=== PATIENT | male | born 1995 | race Caucasian/White ===

== ENCOUNTER 2020-02-25 11:25 | Emergency (ER) | payer BC, OTHER ==
[2020-02-25] MEDS ORDERED: Lidocaine 1% with EPINEPHrine 1:100,000 10 ML MDV INJECT ONE (11:31)
[2020-02-25] MEDS ORDERED: Diphtheria,Pertussis(Acell),Tetanus Vaccine 0.5 ML Syringe IM ONE (11:31)
[2020-02-25] MEDS ORDERED: Lidocaine 1% with EPINEPHrine 1:100,000 20 ML MDV ONE (11:46)
[2020-02-25] MEDS ORDERED: Lidocaine 1% with EPINEPHrine 1:100,000 20 ML MDV INJECT ONE (11:51)
--- NOTE | 2020-02-25 13:11 | EDM.PDOC ---
ED HPI GENERAL MEDICAL PROBLEM - General Chief Complaint: Laceration Stated Complaint: CUT ON LT ARM Time Seen by Provider: 02/25/20 11:31 - History of Present Illness INITIAL COMMENTS - FREE TEXT/NARRATIVE: Presents reporting laceration left wrist. Patient was handling a piece of equipment when a steel box slipped and struck him in the left over the carpal tunnel. No other injury. Unknown tetanus status. Otherwise healthy. Left Wrist Pain Score (Numeric/FACES): 6 - Related Data Allergies Allergy/AdvReac Type Severity Reaction Status Date / Time Penicillins Allergy Unknown unknown Verified 02/25/20 11:34 Home Meds: Home Meds Clindamycin HCl 1 cap PO TID #30 capsule 02/25/20 [Rx] Past Medical History - Infectious Disease History Infectious Disease History: Reports: Chicken Pox - Past Surgical History HEENT Surgical History: Reports: Tonsillectomy GI Surgical History: Reports: Cholecystectomy Social & Family History - Family History Family Medical History: Noncontributory - Tobacco Use Smoking Status *Q: Current Every Day Smoker Years of Tobacco use: 9 Packs/Tins Daily: 0.5 - Alcohol Use Days Per Week of Alcohol Use: 7 Number of Drinks Per Day: 2 Total Drinks Per Week: 14 - Recreational Drug Use Recreational Drug Use: No ED ROS GENERAL - Review of Systems Review Of Systems: Comprehensive ROS is negative, except as noted in HPI. ED EXAM, SKIN/RASH Exam: See Below General Appearance: Alert, No Apparent Distress Ears: Normal External Exam Nose: Normal Inspection Throat/Mouth: Normal Inspection Head: Atraumatic, Normocephalic Neck: Normal Inspection Respiratory/Chest: No Respiratory Distress Cardiovascular: Normal Peripheral Pulses, Regular Rate, Rhythm Back Exam: Normal Inspection Extremities: Normal Inspection Neurological: Alert, Oriented Psychiatric: Normal Affect, Normal Mood Skin: Warm, Dry, Normal Color, No Rash, Other (Left wrist over carpal tunnel 5 cm laceration. Full range of motion and strength to all digits including thumb without hesitation or limitation. Some limitation to flex extend and invert chanda of the wrist. Lacerated tendon noted within wound bed. Full sensation intact. No bleeding. ) ED SKIN PROCEDURES - Laceration/Wound Repair Left Wrist Appearance: Subcutaneous Distal NVT: Neuro & Vascular Intact, Other (lacerated tendon--flexor, not repaired) Anesthetic Type: Local Local Anesthesia - Lidocaine (Xylocaine): 1% with EPI Local Anesthetic Volume: Other (7cc) Skin Prep: Providone-Iodine (Betadine), Saline Exploration/Debridement/Repair: Wound Explored, In a Bloodless Field, Explored to Base Closed with: Sutures Lac/Wound length In cm: 5 Suture Size: 4-0 # of Sutures: 7 Suture Type: Nylon Suture Size: 4-0 Course - Vital Signs Last Recorded V/S: Last Vital Signs Temp 36.1 C 02/25/20 11:36 Pulse 46 L 02/25/20 11:36 Resp 18 02/25/20 11:36 BP 133/58 L 02/25/20 11:36 Pulse Ox 90 L 02/25/20 11:36 - Orders/Labs/Meds Orders: Active Orders 24 hr Category Date Time Status Vaccines to be Administered [RC] PER UNIT ROUTINE Care 02/25/20 11:33 Ordered Meds: Medications Discontinued Medications Generic Name Dose Route Start Last Admin Trade Name Freq PRN Reason Stop Dose Admin Diphtheria/Tetanus/Acell Pertussis 0.5 ml 02/25/20 11:31 02/25/20 12:27 Adacel IM 02/25/20 11:32 Not Given .ONCE ONE Lidocaine/Epinephrine 10 ml 02/25/20 11:31 02/25/20 11:51 Xylocaine 1% With Epinephrine 1:100,000 INJECT 02/25/20 11:32 Not Given ONETIME ONE Lidocaine/Epinephrine Confirm 02/25/20 11:46 02/25/20 12:26 Xylocaine 1% With Epinephrine 1:100,000 Administered 02/25/20 11:47 Not Given Dose 20 ml .ROUTE .STK-MED ONE Lidocaine/Epinephrine 20 ml 02/25/20 11:51 02/25/20 12:32 Xylocaine 1% With Epinephrine 1:100,000 INJECT 02/25/20 11:52 20 ml ONETIME ONE Administration - Re-Assessments/Exams Free Text/Narrative Re-Assessment/Exam: 02/25/20 13:14 Dr. Vasquez examined hand/wrist and laceration. Will close skin, splint and refer to ortho for tendon repair. Departure - Departure Time of Disposition: 13:34 Disposition: Home, Self-Care 01 Condition: Good Clinical Impression: Laceration Flexor tendon laceration of left wrist with open wound Qualifiers: Encounter type: initial encounter Qualified Code(s): S66.115F - Laceration of unspecified muscle, fascia and tendon at wrist and hand level, left hand, initial encounter; S61.927B - Unspecified open wound of left wrist, initial encounter - Discharge Information Referrals: PCP,None [Primary Care Provider] - Woodrow Engel MD [Physician] - Additional Instructions: 1. Take your antibiotics as directed. Start immediately 2. Wear your splint at all times 3. Follow up with Dr. Gayatri Engel direction for tendon repair. You must be seen at 11am in [facility] tomorrow 02/26/2020. 4. Keep clean and dry. Sepsis Event Note (ED) - Evaluation Sepsis Screening Result: No Definite Risk - Focused Exam Vital Signs: Vital Signs Temp Pulse Resp BP Pulse Ox 02/25/20 11:36 36.1 C 46 L 18 133/58 L 90 L - My Orders Last 24 Hours: My Active Orders 02/25/20 11:33 Vaccines to be Administered [RC] PER UNIT ROUTINE - Assessment/Plan Last 24 Hours: My Active Orders 02/25/20 11:33 Vaccines to be Administered [RC] PER UNIT ROUTINE
== END 2020-02-25 14:02 | disposition home or self-care (01) ==
LOC: MW.ED 11:25
DX: S66.822A Laceration of other specified muscles, fascia and tendons at wrist and hand level, left hand, initial encounter (principal); F17.210 Nicotine dependence, cigarettes, uncomplicated; W22.8XXA Striking against or struck by other objects, initial encounter
CPT/HCPCS: 12002; 99283

== ENCOUNTER 2020-02-29 21:26 | Emergency (ER) | payer OTHER ==
--- NOTE | 2020-02-29 21:56 | EDM.PDOC ---
ED HPI GENERAL MEDICAL PROBLEM - General Chief Complaint: Skin Complaint Stated Complaint: STITCHES COMPLAINT Time Seen by Provider: 02/29/20 21:27 - History of Present Illness INITIAL COMMENTS - FREE TEXT/NARRATIVE: History of present illness: [] The patient cut his wrist on the of this month and cut a tendon on the volar surface of his wrist. He saw the hand doctor on the and Dr. Broussardi him that it would heal without any further care. Today he was demonstrating his range of motion to his friends and his stitches but popped open. The patient does not have any change in the motion and strength are feeling in his fingers. Review of systems: As per history of present illness and below otherwise all systems reviewed and negative. Past medical history: As per history of present illness and as reviewed below otherwise noncontributory. Surgical history: As per history of present illness and as reviewed below otherwise noncontributory. Social history: No reported history of drug or alcohol abuse. Family history: As per history of present illness and as reviewed below otherwise noncontributory. Physical exam: Constitutional - well developed, well-nourished and in no acute distress HEENT - normocephalic, no evidence of trauma - external nose and mouth normal - no mass in neck and no JVD - mucosae moist EYES - full EOM, PERRL, no icterus - no evidence of inflammation, injection, or drainage Respiratory - no respiratory distress, equal bilateral expansion, Musculoskeletal no gross deformity of long bones or joints - no tenderness, swelling or edema Neurologic - Alert and oriented times four - CN II-XII grossly intact - motor sensory and coordination symmetrically normal Psychiatric - appropriate mood and affect with normal thought content Hematologic - No petechiae or purpura - mucosa appropriate color and sclera not pale - normal nail bed color and refill Integument -there is superficial dehiscence of the wound on the volar wrist. It is not down to the tendon sheath. It was prepped with Betadine and irrigated with saline and packed with a small 2 x 2 Betadine wet-to-dry dressing. Patient will be instructed on wet-to-dry's. No rash or evidence of trauma - normal tur gor Diagnostics: Exam of the wound [] Therapeutics: Betadine wet-to-dry dressing [] Impression: [] Wound dehiscence Plan: Betadine wet-to-dry dressing, continue antibiotics, follow-up with the [facility] doctor. Call hand doctor Monday. Definitive disposition and diagnosis as appropriate pending reevaluation and review of above. - Related Data Allergies Allergy/AdvReac Type Severity Reaction Status Date / Time Penicillins Allergy Unknown unknown Verified 02/25/20 11:34 Home Meds: Home Meds Clindamycin HCl 1 cap PO TID #30 capsule 02/25/20 [Rx] Past Medical History - Infectious Disease History Infectious Disease History: Reports: Chicken Pox - Past Surgical History HEENT Surgical History: Reports: Tonsillectomy GI Surgical History: Reports: Cholecystectomy Social & Family History - Family History Family Medical History: Noncontributory ED ROS GENERAL - Review of Systems Review Of Systems: Comprehensive ROS is negative, except as noted in HPI. ED EXAM, SKIN/RASH Exam: See Below Text/Narrative:: Physical exam as in my HPI Departure - Departure Time of Disposition: 21:56 Disposition: Home, Self-Care 01 Condition: Good Clinical Impression: Wound dehiscence - Discharge Information Instructions: Wound Dehiscence Referrals: PCP,None [Primary Care Provider] - Additional Instructions: The following information is given to patients seen in the emergency department who are being discharged to home. This information is to outline your options for follow-up care. We provide all patients seen in our emergency department with a follow-up referral. The need for follow-up, as well as the timing and circumstances, are variable depending upon the specifics of your emergency department visit. If you don't have a primary care physician on staff, we will provide you with a referral. We always advise you to contact your personal physician following an emergency department visit to inform them of the circumstance of the visit and for follow-up with them and/or the need for any referrals to a consulting specialist. The emergency department will also refer you to a specialist when appropriate. This referral assures that you have the opportunity for follow-up care with a specialist. All of these measure are taken in an effort to provide you with optimal care, which includes your follow-up. Under all circumstances we always encourage you to contact your private physician who remains a resource for coordinating your care. When calling for follow-up care, please make the office aware that this follow-up is from your recent emergency room visit. If for any reason you are refused follow-up, please contact the [facility] Emergency Department at and asked to speak to the emergency department charge nurse. Do a saline or Betadine wet-to-dry dressing each day until you see the hand doctor again. Call the hand doctor Monday
== END 2020-02-29 22:05 | disposition home or self-care (01) ==
LOC: MW.ED 21:26
DX: T81.30XA Disruption of wound, unspecified, initial encounter (principal); Z88.0 Allergy status to penicillin; Z90.49 Acquired absence of other specified parts of digestive tract
CPT/HCPCS: 99283

== ENCOUNTER 2022-01-04 09:40 | Emergency (ER) | payer BC, OTHER ==
[2022-01-04 10:37] LABS: BLOOD UREA NITROGEN,BUN 13 mg/dL (7.0-18.0); CARBON DIOXIDE,CO2 25.6 mmol/L (21.0-32.0); CHLORIDE,CL 104 mmol/L (98-107); GLUCOSE RANDOM 103 mg/dL (74-106); LIPASE 94 U/L (73-393); POTASSIUM,K 3.8 mmol/L (3.5-5.1); SODIUM,NA 139 mmol/L (136-148)
== END 2022-01-04 11:38 | disposition home or self-care (01) ==
LOC: MW.ED 09:40
DX: R07.89 Other chest pain (principal); Z20.822 Contact with and (suspected) exposure to COVID-19; Z88.8 Allergy status to other drugs, medicaments and biological substances
CPT/HCPCS: 36415; 71045; 71045-26; 80053; 83690; 84484; 85025; 93005; 93010; 99284; 99285-25; U0002

== ENCOUNTER 2022-01-20 17:13 | Emergency (ER) | payer BC | END 2022-01-20 21:15 | disposition left against medical advice (07) | LOC: MW.ED 17:13 | DX: Z53.21 Procedure and treatment not carried out due to patient leaving prior to being seen by health care provider (principal) | CPT/HCPCS: 93010; 99284 ==

== ENCOUNTER 2022-01-20 21:45 | Emergency (ER) | payer BC ==
[2022-01-20 23:59] LABS: CARBON DIOXIDE,CO2 27.9 mmol/L (21.0-32.0); POTASSIUM,K 3.7 mmol/L (3.5-5.1)
[2022-01-21] MEDS ORDERED: Aspirin 81 MG Tab.Chew PO ONE (00:55)
== END 2022-01-21 01:17 | disposition home or self-care (01) ==
LOC: MW.ED 21:45
DX: R07.9 Chest pain, unspecified (principal); R20.2 Paresthesia of skin; Z88.0 Allergy status to penicillin; Z91.030 Bee allergy status; Z91.018 Allergy to other foods
CPT/HCPCS: 36415; 70450; 80053; 84484; 85025; 93005; 99284; A9270; 93010

== ENCOUNTER 2022-04-07 19:37 | Emergency (ER) | payer OTHER, BC ==
[2022-04-07] MEDS ORDERED: Lidocaine 1% with EPINEPHrine 1:100,000 10 ML MDV INJECT ONE (20:17)
== END 2022-04-07 21:55 | disposition home or self-care (01) ==
LOC: MW.ED 19:37
DX: S31.119A Laceration without foreign body of abdominal wall, unspecified quadrant without penetration into peritoneal cavity, initial encounter (principal); S30.92XA Unspecified superficial injury of abdominal wall, initial encounter; Z88.0 Allergy status to penicillin; Z91.018 Allergy to other foods; Z91.030 Bee allergy status; Z90.49 Acquired absence of other specified parts of digestive tract; W26.8XXA Contact with other sharp object(s), not elsewhere classified, initial encounter
CPT/HCPCS: 12001; 74176; 74176-26; 99283

== ENCOUNTER 2023-05-25 15:57 | Emergency (ER) | payer BC | END 2023-05-25 18:45 | disposition home or self-care (01) | LOC: MW.ED 15:57 | DX: R03.0 Elevated blood-pressure reading, without diagnosis of hypertension (principal); M54.2 Cervicalgia; Z88.0 Allergy status to penicillin; Z91.030 Bee allergy status; Z91.018 Allergy to other foods | CPT/HCPCS: 70450; 70450-26; 72125; 72125-26; 99283 ==

== ENCOUNTER 2023-09-12 13:41 | Emergency (ER) | payer BC ==
[2023-09-12] MEDS: Ondansetron 4 MG Tab.DIS PO ONE (15:23)
[2023-09-12] MEDS: Sodium Chloride 0.9% 1,000 ML IV ONE (15:29)
[2023-09-12] MEDS: Ondansetron 4 MG/2 ML SDV IVPUSH ONE (15:32)
[2023-09-12] MEDS: Ketorolac 30 MG/ML SDV IVPUSH ONE (15:32)
[2023-09-12 15:35] LABS: CORONAVIRUS COVID-19 NAA NEGATIVE (NEGATIVE); INFLUENZA A NAA NEGATIVE (NEGATIVE); INFLUENZA B NAA NEGATIVE (NEGATIVE)
[2023-09-12 15:38] LABS: BASOPHILS ABSOLUTE AUTO 0.02 K/uL (0.00-0.20); BASOPHILS PERCENT AUTO 0.2 % (0.0-1.0); HEMATOCRIT 46.1 % (42.0-52.0); HEMOGLOBIN 16.7 g/dL (14.0-18.0); IMMATURE GRAN ABSOLUTE AUTO 0.05 K/uL (0.00-0.05); IMMATURE GRAN PERCENT AUTO 0.4 % (0.0-0.4); LYMPHOCYTES ABSOLUTE AUTO 0.75 K/uL (1.00-4.80); LYMPHOCYTES PERCENT AUTO 6.4 % (24.0-44.0); MEAN CORPUSCULAR HEMOGLOBIN 30.1 pg (28.0-32.0); MEAN CORPUSCULAR HGB CONC 36.2 g/dL (32.0-36.0); MEAN CORPUSCULAR VOLUME 83.1 fL (83.0-99.0); MEAN PLATELET VOLUME 10.1 fL (9.4-12.4); MONOCYTES ABSOLUTE AUTO 0.64 K/uL (0.00-0.80); MONOCYTES PERCENT AUTO 5.5 % (0.0-8.0); NEUTROPHILS ABSOLUTE AUTO 10.25 K/uL (1.80-7.70); NEUTROPHILS PERCENT AUTO 87.5 % (41.0-71.0); PLATELET COUNT,PLT 168 K/uL (150-400); RED BLOOD CELL COUNT 5.55 M/uL (4.52-5.90); WHITE BLOOD CELL COUNT,WBC 11.71 K/uL (3.9-11.3)
[2023-09-12 16:12] LABS: A/G RATIO 1.1 (0.9-1.6); ALBUMIN 4.1 g/dL (3.4-5.0); CALCIUM 9.1 mg/dL (8.5-10.1); CARBON DIOXIDE,CO2 23.5 mmol/L (21.0-32.0); CREATININE 0.9 mg/dL (0.8-1.3); EST CRCL DRUG DOSING (CG) 139.54 mL/min; POTASSIUM,K 3.8 mmol/L (3.5-5.1); PROTEIN TOTAL,TP 7.8 g/dL (6.4-8.2)
== END 2023-09-12 18:12 | disposition home or self-care (01) ==
LOC: MW.ED 13:41
DX: R11.10 Vomiting, unspecified (principal); R19.7 Diarrhea, unspecified
CPT/HCPCS: 0240U; 36415; 80053; 85025; 96361; 96374; 96375; 99284; J1885; J2405; J7030

== ENCOUNTER 2023-11-10 19:07 | Emergency (ER) | payer BC ==
[2023-11-10] MEDS: Sodium Chloride 0.9% 2.5 ML Syringe FLUSH PRN (19:45)
[2023-11-10] MEDS: Sodium Chloride 0.9% 10 ML Syringe FLUSH PRN (19:45)
[2023-11-10 19:49] LABS: BASOPHILS ABSOLUTE AUTO 0.04 K/uL (0.00-0.20); BASOPHILS PERCENT AUTO 0.5 % (0.0-1.0); EOSINOPHILS ABSOLUTE AUTO 0.17 K/uL (0.00-0.45); HEMOGLOBIN 15.1 g/dL (14.0-18.0); IMMATURE GRAN ABSOLUTE AUTO 0.04 K/uL (0.00-0.05); IMMATURE GRAN PERCENT AUTO 0.5 % (0.0-0.4); LYMPHOCYTES ABSOLUTE AUTO 2.69 K/uL (1.00-4.80); LYMPHOCYTES PERCENT AUTO 32.3 % (24.0-44.0); MEAN CORPUSCULAR HEMOGLOBIN 29.7 pg (28.0-32.0); MEAN CORPUSCULAR VOLUME 82.5 fL (83.0-99.0); MEAN PLATELET VOLUME 9.7 fL (9.4-12.4); MONOCYTES ABSOLUTE AUTO 0.51 K/uL (0.00-0.80); MONOCYTES PERCENT AUTO 6.1 % (0.0-8.0); NEUTROPHILS ABSOLUTE AUTO 4.87 K/uL (1.80-7.70); NEUTROPHILS PERCENT AUTO 58.6 % (41.0-71.0); PLATELET COUNT,PLT 170 K/uL (150-400); RED BLOOD CELL COUNT 5.09 M/uL (4.52-5.90); WHITE BLOOD CELL COUNT,WBC 8.32 K/uL (3.9-11.3)
[2023-11-10 20:16] LABS: A/G RATIO 1.1 (0.9-1.6); ALBUMIN 3.9 g/dL (3.4-5.0); BILIRUBIN TOTAL 0.4 mg/dL (0.2-1.0); C-REACTIVE PROTEIN 0.4 mg/dL (<0.3); CALCIUM 9.1 mg/dL (8.5-10.1); CARBON DIOXIDE,CO2 25.6 mmol/L (21.0-32.0); CREATININE 0.8 mg/dL (0.8-1.3); EST CRCL DRUG DOSING (CG) 152.59 mL/min; POTASSIUM,K 3.8 mmol/L (3.5-5.1); PROTEIN TOTAL,TP 7.5 g/dL (6.4-8.2)
[2023-11-10] MEDS: Morphine 2 MG/ML SYRINGE IVPUSH ONE (20:32)
[2023-11-10] MEDS: Ondansetron 4 MG/2 ML SDV IVPUSH ONE (20:32)
[2023-11-10 21:20] LABS: APPEARANCE,URINE CLEAR; BILIRUBIN,URINE NEGATIVE (NEGATIVE); COLOR,URINE YELLOW; GLUCOSE,URINE NEGATIVE (NEGATIVE); KETONES,URINE NEGATIVE (NEGATIVE); LEUKOCYTE ESTERASE,URINE NEGATIVE (NEGATIVE); NITRITE,URINE NEGATIVE (NEGATIVE); OCCULT BLOOD,URINE NEGATIVE (NEGATIVE); PROTEIN,URINE NEGATIVE (NEGATIVE); UROBILINOGEN,URINE 0.2 EU/dL (<2.0)
[2023-11-10] MEDS: Sodium Chloride 0.9% 1,000 ML IV ONE (21:31)
[2023-11-10] MEDS: Iopamidol 755 MG/ML 500 ML Multipack Bottle IVPUSH ONE (21:51)
[2023-11-10] MEDS: diphenhydrAMINE 50 MG/ML SDV IVPUSH ONE (22:12)
[2023-11-10] MEDS: Famotidine 20 MG/2 ML SDV IVPUSH ONE (22:13)
[2023-11-10 22:51] LABS: C. TRACHOMATIS BY PCR NOT DETECTED; N. GONORRHOEAE BY PCR NOT DETECTED
== END 2023-11-10 23:40 | disposition home or self-care (01) ==
LOC: MW.ED 19:07
DX: K65.4 Sclerosing mesenteritis (principal); Z88.0 Allergy status to penicillin; Z91.048 Other nonmedicinal substance allergy status; Z91.030 Bee allergy status; Z90.49 Acquired absence of other specified parts of digestive tract; Z79.899 Other long term (current) drug therapy
CPT/HCPCS: 36415; 74177; 80053; 81003; 85025; 85652; 86140; 86308; 87491; 87591; 96374; 96375; 99284; J1200; J3490; Q9967

== ENCOUNTER 2025-02-05 01:07 | Emergency (ER) | payer BC | END 2025-02-05 02:26 | LOC: MW.ED 01:07 | DX: S86.811A Strain of other muscle(s) and tendon(s) at lower leg level, right leg, initial encounter (principal); Z88.0 Allergy status to penicillin; Z91.030 Bee allergy status; Z79.899 Other long term (current) drug therapy; Z90.49 Acquired absence of other specified parts of digestive tract; X58.XXXA Exposure to other specified factors, initial encounter | CPT/HCPCS: 93971-26-RT; 93971-RT; 99282; 99285 ==